=== PATIENT | female | born 1980 | race Caucasian/White ===

== ENCOUNTER 2017-06-29 06:08 | Emergency (ER) | payer OTHER ==
[~2017-06-29] VITALS: Ht 162.6 cm; Wt 177.0 kg
[2017-06-29 06:28] LABS: HEMATOCRIT 40.4 % (36.0-46.0); HEMOGLOBIN 13.6 G/DL (11.9-15.5); MCH 30.3 PG (29.0-34.0); MCHC 33.7 G/DL (30.0-36.0); PLATELET COUNT 248 K/uL (156-360); RBC DIS.WIDTH-CV 12.1 % (11.8-14.6); RBC DIS.WIDTH-SD 39.9 % (39-53); RED BLOOD COUNT 4.49 M/uL (3.80-5.20); WHITE BLOOD COUNT 6.4 K/uL (4.1-10.2)
[2017-06-29 09:07] LABS: APPEARANCE SL.HAZY ((CLEAR)); BILIRUBIN NEGATIVE; BLOOD LARGE; COLOR YELLOW ((YELLOW)); GLUCOSE (STRIP) NEGATIVE; KETONES NEGATIVE; LEUKOCYTES NEGATIVE; NITRITE NEGATIVE; PROTEIN (STRIP) 30; UROBILINOGEN 0.2 MG/DL (0.2-1.0)
[2017-06-29 09:11] LABS: BACTERIA RARE /HPF; CALCIUM OXALATE CRYSTALS 3+ /HPF; EPITHELIAL CELLS RARE /HPF; MUCUS TRACE /LPF; RED BLOOD CELLS TNTC /HPF (0-5); UCUL ADDED? YES
[2017-06-29 15:16] LABS: BASOPHIL (%) 0.2 % (0-1); EOSINOPHIL (%) 0.8 % (0-5); EOSINOPHIL COUNT 0.1 K/uL (0-0.3); HEMATOCRIT 42.7 % (36.0-46.0); HEMOGLOBIN 14.4 G/DL (11.9-15.5); IMMATURE GRANULOCYTE (%) 0.2 % (0.0-0.7); LYMPHOCYTE (%) 38.8 % (15-42); LYMPHOCYTE COUNT 3.4 K/uL (1.0-2.8); MCH 30.4 PG (29.0-34.0); MCHC 33.7 G/DL (30.0-36.0); MCV 90.1 FL (83-99); MONOCYTE (%) 6.9 % (3-12); MONOCYTE COUNT 0.6 K/uL (0-0.8); NEUTROPHIL (%) 53.1 % (45-76); NEUTROPHIL COUNT 4.6 K/uL (1.8-6.4); PLATELET COUNT 261 K/uL (156-360); RBC DIS.WIDTH-SD 39.9 % (39-53); RED BLOOD COUNT 4.74 M/uL (3.80-5.20); WHITE BLOOD COUNT 8.7 K/uL (4.1-10.2)
[2017-06-29 15:25] LABS: ALBUMIN 4.3 g/dL (3.2-4.8); CHLORIDE 106 mEq/L (99-109); POTASSIUM 3.5 mEq/L (3.7-5.4); SODIUM 140 mEq/L (136-147)
[2017-06-29 15:27] LABS: GLUCOSE 89 mg/dL (70-99); TOTAL PROTEIN 7.4 g/dL (6.4-8.3)
[2017-06-29 15:29] LABS: TOTAL BILIRUBIN 0.7 mg/dL (0.0-1.0)
[2017-06-29 15:31] LABS: ALKALINE PHOSPHATASE 79 IU/L (3-129); CREATININE 0.7 mg/dL (0.6-1.3); GFR ESTIMATE (CALCULATED) > 59 mL/min/
[2017-06-29 15:32] LABS: AST (GOT) 26 IU/L (2-34); UREA NITROGEN (BUN) 7 mg/dL (9-23)
[2017-06-29 15:33] LABS: DIRECT BILIRUBIN 0.2 mg/dL (0.0-0.3)
[2017-06-29 15:34] LABS: ALT (GPT) 19 IU/L (3-49)
[2017-06-29] MEDS ORDERED: PERCOCET 5/31 TABLET PO (16:45)
[2017-06-29 18:25] VITALS: BP 100/62
[2017-06-29 19:46] VITALS: BP 103/58
[2017-06-29 23:43] VITALS: BP 102/58
[2017-06-30 03:41] VITALS: BP 101/57
[2017-06-30 07:12] VITALS: BP 96/52
[2017-06-30 10:34] LABS: HEPATITIS B SURFACE ANTIGEN Nonreactive
[2017-06-30 10:35] LABS: HEPATITIS C ANTIBODY Nonreactive
[2017-06-30 10:36] LABS: HIV-1/2 AB/AG COMBO Nonreactive
[2017-06-30 10:43] LABS: ANTI-HEPATITIS B CORE (TOTAL) Nonreactive; HEPATITIS B SURFACE ANTIBODY REACTIVE
== END 2017-06-30 09:25 | disposition home or self-care (01) ==
LOC: EME 06:08 → 2SOUTH 14:54 → ENRESERV 14:56 → 2EAST 17:45
PROVIDERS: Nurse Practitioner Family
DX: O00.101 Right tubal pregnancy without intrauterine pregnancy (principal); K66.1 Hemoperitoneum; N93.9 Abnormal uterine and vaginal bleeding, unspecified; Z98.1 Arthrodesis status
CPT/HCPCS: 76801; 80053; 81003; 82248; 83030; 84100; 84702; 85025; 85027; 86703; 86704; 86706; 86803; 86850; 86900; 86901; 87086; 87340; 88305; 99281; 99285; G0378; J0330; J0690; J1170; J1885; J2250; J2270; J2405; J2710; J2790; J3010; J7030; J7120; S0020